=== PATIENT | male | born 1970 | race African-American/Black ===

== ENCOUNTER 2017-05-03 03:24 | Emergency (ER) | payer MEDICAID, OTHER ==
[~2017-05-03] VITALS: Ht 190.5 cm; Wt 149.7 kg
[2017-05-03 04:40] VITALS: BP 140/73
== END 2017-05-03 09:17 | disposition left against medical advice (07) ==
LOC: ER 03:24
DX: R42 Dizziness and giddiness (principal); Z53.21 Procedure and treatment not carried out due to patient leaving prior to being seen by health care provider
CPT/HCPCS: 71046; 82962; 93005